=== PATIENT | female | born 2000 | race Caucasian/White ===

== ENCOUNTER 2019-08-15 10:40 | Emergency (ER) | payer OTHER, SELFPAY ==
[2019-08-15 10:51] VITALS: BP 79/48; PULSE 83; RESP 18; TEMP 37.2; O2SAT 99
--- NOTE | 2019-08-15 11:13 | ED.URI ---
HPI - URI/Sore Throat General Chief Complaint: Upper Respiratory Infection Stated Complaint: chill/fatigue/nausea Time Seen by Provider: 08/15/19 11:03 Source: patient and RN notes reviewed Mode of arrival: ambulatory Limitations: no limitations History of Present Illness HPI Narrative: Patient presents today with a 2-day history of body aches, cough, chills and sweats, sore throat, nausea. She has been taking zinc, Tylenol, and oscillococcinum with some relief. Denies history of asthma. She does not smoke or vape. She did not receive a flu vaccine this season. Related Data Allergies Allergy/AdvReac Type Severity Reaction Status Date / Time NKDA Allergy Mild Uncoded 08/15/19 10:56 Review of Systems Review of Systems: Narrative: CONSTITUTIONAL: + Chills and sweats, body aches EYES: Denies visual changes, redness, or discharge. ENT: Denies rhinorrhea, congestion, or otalgia.+ Sore throat CARDIOVASCULAR: Denies chest pain, palpitations, or edema. RESPIRATORY: Denies dyspnea.+ Cough GASTROINTESTINAL: Denies abdominal pain, vomiting, or diarrhea.+ Nausea GENITOURINARY: Denies dysuria or hematuria. SKIN: Denies rash, itching, or wounds. MUSCULOSKELETAL: Denies back pain, joint pain, or myalgia. NEUROLOGIC: Denies headache, numbness, tingling, or weakness. PSYCH: Denies depression or anxiety. PMFSH Social History Social History Smoking status: Never smoker Alcohol intake: never Comments At time of signature, I have reviewed and agree with nursing past medical, surgical, social and family history unless otherwise noted. Please see nursing chart for further information. There is no relevant family history pertinent to the presenting complaint Exam Narrative: Exam Narrative: GENERAL: Mildly ill throat-appearing, well-nourished, and in no acute distress. HEAD: Normocephalic, atraumatic. EYES: EOMI. No redness or drainage. Conjunctivae normal. ENT: Mucous membranes pink and moist. Nares clear. No rhinorrhea. TMs normal bilaterally. Throat normal. Uvula midline. NECK: Normal AROM. Supple. No lymphadenopathy. CHEST: No respiratory distress. Clear to auscultation. HEART: Regular rate and rhythm. No murmur appreciated. Normal peripheral pulses. EXTREMITIES: Normal range of motion. No edema. SKIN: Warm, dry, no rash. NEURO: No focal deficits. Alert and oriented x3. Gait steady. PSYCH: Normal affect. No signs of depression or anxiety. Course Vital Signs Vital signs: Vital Signs Temperature 98.9 F 08/15/19 10:51 Pulse Rate 83 08/15/19 10:51 Respiratory Rate 18 08/15/19 10:51 Blood Pressure 79/48 L 08/15/19 10:51 Pulse Oximetry 99 08/15/19 10:51 Temperature 98.9 F 08/15/19 10:51 Pulse Rate 83 08/15/19 10:51 Respiratory Rate 18 08/15/19 10:51 Blood Pressure 86/62 L 08/15/19 11:19 Pulse Oximetry 99 08/15/19 10:51 Reviewed. BP manually rechecked. MDM - URI/Sore Throat Differential Diagnosis Differential diagnosis: Likely upper respiratory infection, viral infection, bronchitis and influenza Lab Data Attestation: I reviewed the patient's lab results. Labs: Influenza A Screen Negative Reference Range: Negative Influenza B Screen Positive Reference Range: Negative Critical Care Time Critical Care Time Critical Care Time: No Discharge Plan Discharge Clinical Impression: Influenza B Patient Disposition: Home, Self-Care Condition: Stable Instructions: Influenza (DC) Additional Instructions: You are positive for influenza B. You will be contagious for 2 additional days. Please continue [id number] medication for your symptoms. Follow-up with your doctor in 4 to 5 days if symptoms are not improving. Patient Language: German Follow-up/Referrals: UNKNOWN,DOCTOR [Primary Care Provider] - Time of Disposition: : Discharge Date/Time: 08/15/19 11:20
[2019-08-15 11:19] VITALS: BP 86/62
== END 2019-08-15 11:20 | disposition home or self-care (01) ==
PROVIDERS: Emergency Provider Nurse Practitioner
DX: J10.1 Influenza due to other identified influenza virus with other respiratory manifestations (principal)
CPT/HCPCS: 87804; 99212; G0463